=== PATIENT | male | born 1955 | race Two or more races ===

== ENCOUNTER 2016-11-23 07:38 | Emergency (ER) | payer OTHER ==
[2016-11-23 07:57] VITALS: PULSE 76; RESP 18; TEMP 98.2; O2SAT 94
[2016-11-23 08:04] VITALS: BP 168/122
--- NOTE | 2016-11-23 08:26 | UCPHY ---
H & P Time Seen by Provider: 11/23/16 08:22 Patient Type: New HPI/ROS: This patient presents with a chief complaint of pain and swelling in his left ankle and foot which began on awaking 2 mornings ago. He denies any injury whatsoever. He also admits to some pain behind the left knee. He has not had fever or other constitutional symptoms. He denies numbness or tingling. He has noticed no motor dysfunction and the ankles not particularly painful with walking. Point of maximal discomfort is over anterior medial aspect of the ankle. Smoking Status: Former smoker Physical Exam: This is a well-developed well-nourished male who is in no acute distress. He is alert, lucid and appropriate. Examination of the left lower extremities reveals no tenderness about the knee specifically in the popliteal fossa. There is no actual calf tenderness but there is swelling in the lower 1/3 of the lower leg. The ankle and foot are significantly swollen with faint erythematous discoloration but no warmth to the touch. Tenderness is mild. CMS is intact. Constitutional: Initial Vital Signs Temperature (C) 36.8 C 11/23/16 07:54 Heart Rate 76 11/23/16 07:54 Respiratory Rate 18 11/23/16 07:54 Blood Pressure 174/137 H 11/23/16 07:54 O2 Sat (%) 94 11/23/16 07:54 O2 Delivery Mode Room Air Allergies/Adverse Reactions: No Known Allergies Allergy (Unverified 11/23/16 07:49) Home Medications: Medication Instructions Recorded NK [No Known Home Meds] 11/23/16 Medical Decision Making - Diagnostics Imaging: An ultrasound of the left lower extremity reveals no cause for this patient's symptoms. Specifically there is no DVT and no Medrano cyst. Differential Diagnosis: The cause of this patient's symptoms is currently unknown but I believe that we have reasonably exclude the possibility of a DVT. Without a history of injury I do not believe it is related to trauma. I do not feel that symptoms are related to an infectious process based on the minimal amount of erythema which is way out of proportion to the degree and location of the swelling. I feel it is best to wait and see how this progresses before arranging further treatment. Departure - Departure Disposition: Home, Routine, Self-Care Clinical Impression: Pain and swelling of ankle Qualifiers: Laterality: left Qualifier Code: (M25.472) Effusion, left ankle Condition: Good Instructions: Arthralgia (ED), Swollen Joint (ED) Additional Instructions: If the pain and swelling in your ankle has not begun to improve in 2 or 3 days you should either return here or follow up with her primary care physician. If you feel in the meantime that symptoms are worsening or if you noticed increased pain or redness you should return here immediately. Keep your leg elevated as much as possible. Apply ice packs to the area several times daily. Adult Pain & Fever Control: We recommend Acetaminophen (Tylenol) and Ibuprofen (Motrin, Advil) for pain and fever control. When fever is high or pain severe, both drugs can be used at the same time, but at different intervals. Please note the time differences. Your dose is: Acetaminophen [650]mg every 4 to 6 hours ibuprofen [600]mg every [6] hours with food OR naproxen Sodium (Aleve) [440]mg every 12 hours. Note: do not take Acetaminophen with Hydrocodone (Vicodin, Lortab) or Oxycodone (Percocet). These medications also contain Acetaminophen. No more than 3000 mg of Acetaminophen should be taken in 24 hours (for an adult) . The maximal dose of ibuprofen that it is safe in a 24-hour period is 2400 mg. You may take 400 mg every 4 hours, 600 mg every 6 hours or 800 mg every 8 hours safely. Referrals: Warren Barrios MD [Primary Care Provider] - As per Instructions - PQRS PQRS Measurement: Not applicable
--- NOTE | 2016-11-23 08:53 | US ---
Ultrasound Venous Duplex/Doppler left Leg History: Left ankle edema Findings: Ultrasound venous duplex and Doppler imaging of the common femoral vein, femoral vein, pop liteal vein, calf veins, greater saphenous vein origin, and contralateral common femoral vein demonst rates normal compressibility, color flow, and Doppler flow without deep venous thrombosis. Impression: No deep venous thrombosis left leg. Findings and recommendations discussed with Emergency Department physician, Dr. Shakeel Eaton at 0 850 hour, today. Final report concurs with initial preliminary interpretation.
== END 2016-11-23 09:02 | disposition home or self-care (01) ==
LOC: CED 07:38
DX: M25.472 Effusion, left ankle (principal)
CPT/HCPCS: 93971-PO; 99203-PO; G0463-PO